=== PATIENT | female | born 1980 | race Caucasian/White ===

== ENCOUNTER 2016-10-09 10:41 | Outpatient (CLI) | payer OTHER | END 2016-10-09 10:42 | LOC: LABRHC 10:41 | PROVIDERS: ATTEND Physician Assistant | DX: R30.0 Dysuria (principal) | CPT/HCPCS: 87086; 87186 ==

== ENCOUNTER 2018-03-11 16:48 | Emergency (ER) | payer SELFPAY ==
[2018-03-11 17:01] VITALS: BP 116/68
--- NOTE | 2018-03-11 18:09 | ED Physician Documentation ---
General Adult - HISTORIAN Historian: patient - HPI Stated Complaint: ALLERGIC RX Chief Complaint: Allergic Reaction Additional Information: Took first doses of metronidazole and bactrim in the last 3 hours. Prescribed these meds at urgent care in [place] for UTI and trich. [place] warm, nose felt stuffy for a few moments, then back to normal. She took a shower and now is red all over with itching. Thinks she has taken bactrim in the past? No wheezing. No other modifying factors or associated signs. - ROS CONST: no problems - PAST HX Past History: other (above) Allergies/Adverse Reactions: Allergies Allergy/AdvReac Type Severity Reaction Status Date / Time Sulfa (Sulfonamide Allergy Mild rash Verified 03/11/18 17:02 Antibiotics) Home Medications: Ambulatory Orders Medication Instructions Recorded Clindamycin HCl 300 mg PO Q12H #14 capsule 03/11/18 Nitrofurantoin Monohyd/M-Cryst 100 mg PO Q12H #14 capsule 03/11/18 [Macrobid 100 mg Capsule] - SOCIAL HX Smoking History: non-smoker - FAMILY HX Family History: No - VITAL SIGNS Vital Signs: Vital Signs Temp Pulse Resp BP Pulse Ox 96.7 F L 98 H 20 116/68 98 03/11/18 16:58 03/11/18 16:58 03/11/18 16:58 03/11/18 16:58 03/11/18 16:58 - REVIEWED ASSESSMENTS Nursing Assessment Reviewed: Yes Vitals Reviewed: Yes General Adult Physical Exam - PHYSICAL EXAM GENERAL APPEARANCE: mild distress EENT: eye inspection normal, ENT inspection normal, pharynx normal (Mallampati 2) NECK: normal inspection, supple. No: lymphadenopathy RESPIRATORY: no resp distress, breath sounds normal. No: wheezes CVS: reg rate & rhythm, heart sounds normal, no murmur ABDOMEN: normal bowel sounds BACK: normal inspection SKIN: warm/dry, other (erythematous over most of skin. ) EXTREMITIES: normal range of motion (gait and stance), no evidence of injury NEURO: CN's nml as tested, motor nml, sensation nml, cognition normal Discharge Clincal Impression: Allergic reaction Qualifiers: Encounter type: initial encounter Qualified Code(s): T78.40XA - Allergy, unspecified, initial encounter Prescriptions: Clindamycin HCl 300 mg PO Q12H #14 capsule Nitrofurantoin Monohyd/M-Cryst [Macrobid 100 mg Capsule] 100 mg PO Q12H #14 capsule Referrals: Primary Doctor,No [Primary Care Provider] - 2 Days Additional Instructions: Stop the medications you began today. Your prescriptions are at [facility]. Do not begin them until tomorrow. You can take 25 mg of Benadryl up to four times a day if needed for itching. Condition: Good Disposition: 01 HOME, SELF-CARE Decision to Admit: NO Decision Time: 18:07
== END 2018-03-11 18:09 | disposition home or self-care (01) ==
LOC: ED 16:48
DX: L53.9 Erythematous condition, unspecified (principal); T78.40XA Allergy, unspecified, initial encounter; X58.XXXA Exposure to other specified factors, initial encounter; Y92.9 Unspecified place or not applicable; Y93.9 Activity, unspecified; Y99.9 Unspecified external cause status
CPT/HCPCS: 99282

== ENCOUNTER 2018-03-27 09:20 | Emergency (ER) | payer SELFPAY ==
--- NOTE | 2018-03-27 10:11 | ED Physician Documentation ---
General Adult - HISTORIAN Historian: patient - HPI Stated Complaint: vag itching/discharge Chief Complaint: General Adult Onset: days ago Timing: still present Severity: moderate Further Comments: yes (Pt is a 37 yo female with vag discharge and itching. Pt had had a UTI and finished taking abx last week. After discharge began, pt used OTC Monistat for presumptive yeast infection, but this did not help. 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.) - ROS CONST: no problems EYES/ENT: none CVS/RESP: none GI/: other (vag itching/discharge) MS/SKIN/LYMPH: none NEURO/PSYCH: headache - PAST HX Past History: other (thyroid c/o, cervical cancer 2nd to HPV, ) Surgeries/Procedures: BTL, Allergies/Adverse Reactions: Allergies Allergy/AdvReac Type Severity Reaction Status Date / Time Sulfa (Sulfonamide Allergy Mild rash Verified 03/27/18 09:36 Antibiotics) Penicillins Allergy Unknown Verified 03/27/18 09:36 Home Medications: Ambulatory Orders Medication Instructions Recorded Levothyroxine Sodium [Levoxyl] 100 mcg PO DAILY 03/27/18 Metronidazole 500 mg PO Q12H #14 tablet 03/27/18 - SOCIAL HX Smoking History: cigarettes - FAMILY HX Family History: No - VITAL SIGNS Vital Signs: Vital Signs Temp Pulse Resp BP Pulse Ox 116/68 03/11/18 18:09 - REVIEWED ASSESSMENTS Nursing Assessment Reviewed: Yes Vitals Reviewed: Yes Progress - Progress Progress: Wet prep - clue cells seen; no yeast or trichomonas GC/chlamydia - pending General Adult Physical Exam - PHYSICAL EXAM GENERAL APPEARANCE: no distress EENT: pharynx normal NECK: normal inspection, supple RESPIRATORY: no resp distress, chest non-tender, breath sounds normal CVS: reg rate & rhythm, heart sounds normal ABDOMEN: soft, no organomegaly, normal bowel sounds, other (pelvic exam: normal external, white vag discharge) BACK: normal inspection, no CVA tenderness SKIN: warm/dry, normal color EXTREMITIES: non-tender, normal range of motion, no evidence of injury NEURO: oriented X3, motor nml, sensation nml Discharge Clincal Impression: Bacterial vaginitis Prescriptions: Metronidazole 500 mg PO Q12H #14 tablet Referrals: Primary Doctor,No [Primary Care Provider] - Condition: Good Disposition: 01 HOME, SELF-CARE Decision to Admit: NO Decision Time: 10:11
[2018-03-27 10:44] VITALS: BP 100/60
== END 2018-03-27 10:25 | disposition home or self-care (01) ==
LOC: ED 09:20
DX: N76.0 Acute vaginitis (principal)
CPT/HCPCS: 87491; 87591; 99283

== ENCOUNTER 2018-08-10 15:17 | Outpatient (CLI) | payer OTHER | END 2018-08-10 15:19 | LOC: LAB 15:17 | PROVIDERS: ATTEND Nurse Practitioner Family | DX: E89.0 Postprocedural hypothyroidism (principal); Z86.19 Personal history of other infectious and parasitic diseases | CPT/HCPCS: 36415; 84439; 84443; 84481; 87210; 87491; 87591; 88148; G0143 ==

== ENCOUNTER 2018-09-07 10:01 | Outpatient (CLI) | payer OTHER | END 2018-09-07 10:03 | LOC: LAB 10:01 | PROVIDERS: ATTEND Nurse Practitioner Family | DX: E89.0 Postprocedural hypothyroidism (principal) | CPT/HCPCS: 36415; 84439; 84443; 84481 ==

== ENCOUNTER 2019-03-22 09:25 | Outpatient (CLI) | payer OTHER | END 2019-03-22 09:27 | LOC: LAB 09:25 | PROVIDERS: ATTEND Nurse Practitioner Family | DX: E89.0 Postprocedural hypothyroidism (principal); E05.00 Thyrotoxicosis with diffuse goiter without thyrotoxic crisis or storm | CPT/HCPCS: 36415; 84439; 84443; 84481 ==

== ENCOUNTER 2019-06-16 16:06 | Outpatient (CLI) | payer OTHER | END 2019-06-16 16:11 | LOC: LAB 16:06 | PROVIDERS: ATTEND Nurse Practitioner Family | DX: E89.0 Postprocedural hypothyroidism (principal); E05.00 Thyrotoxicosis with diffuse goiter without thyrotoxic crisis or storm | CPT/HCPCS: 36415; 84443 ==